=== PATIENT | male | born 1990 | race Caucasian/White ===

== ENCOUNTER 2022-07-03 20:58 | Emergency (ER) | payer OTHER, MEDICAID, SELFPAY ==
[2022-07-03 20:59] VITALS: BP 140/81; PULSE 82; RESP 16; TEMP 36.2; BMI 24.4
--- NOTE | 2022-07-03 23:04 | ED.VIS.LOWEX ---
HPI History of Present Illness HPI Narrative: Left knee laceration versus chainsaw 5 and half hours ago Chief Complaint: Laceration Informant: patient and spouse/S.O. Occured/Mechanism Mechanism/Context: Yes injury Onset/Context/Timing Onset: Today and Hours Context: Sudden Onset Timing: Continuous Quality of Pain: Sharp and Stabbing Current Severity: Mild Maximum Severity: Mild Associated Symptoms Associated Symptoms: Negative for Parasthesia, Weakness or Loss of Funtion Narrative Narrative: 33-year-old male past medical history of depression. Was using a chainsaw today and lacerated his left knee by accident. This occurred around 5:30 pm. He received a tetanus update about 2 to 3 months ago. Denies any other complaints. He has been able to ambulate on that leg. Tetanus Immunization: <5 years Prior similar symptoms: No Recent Illness/Hospitalization: No PFSH PFSH Allergy/AdvReac Type Severity Reaction Status Date / Time No Known Allergies Allergy Verified 07/03/22 23:18 Surgical History History of orthopedic surgery History of placement of ear tubes Social History Smoking Status: Current every day smoker tobacco type: cigarettes ROS ROS ED ROS Narrative Denies any recent Review of Systems ROS Unobtainable: Denies due to encephalopathy Constitutional Constitutional ED: Denies chills or fever(s) Eyes Eyes: Denies blurry vision ENT ENT ED: Denies ear pain Cardiovascular Cardiovascular: Denies chest pain Respiratory/Chest Respiratory/Chest: Denies cough Gastrointestinal Gastrointestinal: Denies abdominal pain Genitourinary Genitourinary ED: Denies dysuria Musculoskeletal Musculoskeletal: Denies arthralgias Integumentary Denies abscess Neurologic Neurologic: Denies headache(s) Psychiatric Psychiatric: Denies anxiety Endocrine Endocrinology: Denies polydipsia Hematologic/Lymphatic Hematologic/Lymphatic: Denies easy bleeding Allergic/Immunologic Allergic/Immunologic ED: Denies mouth swelling or tongue swelling EXAM Physical Exam Narrative Exam Narrative: -year-old male no acute distress vital signs stable afebrile. HEENT, neck exam normal. Lungs clear equal symmetrical. Heart regular rhythm rate about 80 no murmur. Chest were nontender. Abdomen soft nontender. Moving all 4 extremities. Left knee has 2 lacerations over the patella involving skin and subcu tissue. He is able to lift his leg prove his extensor mechanism is intact. He is able to flex the left leg. There is no gross bony deformity. No effusion. He has normal dorsi plantar flexion of the left foot and normal sensation. The lacerations to the knee will need to be repaired. Const Vital Signs: 07/03/22 20:59 07/03/22 20:59 Temperature 97.1 F L Temperature Source Temporal Pulse Rate 82 82 Respiratory Rate 16 16 Blood Pressure 140/81 H 140/81 H Blood Pressure Mean 100 100 Positive well nourished and well developed; Negative for obese, cachectic, contractures or unkempt General Appearance ED: well developed and NAD; Negative for unkempt, cachectic or contractures Nutritional Appearance: Negative for cachectic or obese HEENT Reports moist mucous membranes normocephalic and atraumatic; Negative for trauma or tenderness Eyes PERRL General Eye ED: Negative for other Neck full ROM and supple Thyroid: Negative for tender or other Lymph Lymphatic: Negative for other Chest Wall inspection of chest normal and palpation of chest normal Chest: Negative for other Resp normal respiratory effort, no retractions and clear to auscultation bilaterally Effort and Inspection: Negative for pain with movement Auscultation: Negative for rales, rhonchi, wheezes or diminished lung sounds Cardio regular rate, regular rhythm, S1 normal heart sound, S2 normal heart sound and no murmurs Rate: Negative for bradycardia Rhythm: Negative for abnormal rhythm Bruits: Negative for other GI non-tender, non-distended and no masses Inspection: Negative for abdominal distention Auscultation: normoactive bowel sounds Palpation: soft; Negative for tender Back/Spine no CVA tenderness General Back: Negative for CVA tenderness or swelling Cervical Spine: Negative for cervical spine tenderness Thoracic Spine / Upper Back: Negative for thoracic spinal tenderness Lumbar Spine / Lower Back: Negative for lumbar spinal tenderness Extremity full ROM; Negative for normal to inspection Extremity Narrative: 2 parallel lacerations left knee above the patella involving the skin and subcu tissue. Flexion-extension intact. Distally left foot is neurovascular intact with normal dorsi and plantar flexion. General Extremety ED: Negative for weight-bearing difficulty General Extremity: Negative for weight-bearing difficulty Neuro oriented x3, CN's II-XII intact bilaterally, moves all extremities and no sensory deficits noted Sensorium / Orientation: alert, oriented to person, oriented to place and oriented to time; Negative for orientation impaired, confused, lethargic or stuporous Motor Exam: strength 5/5 throughout Psych mental status grossly normal Appearance: Negative for unkempt Speech: No other Mood & Affect: Negative for anxious Skin No no wounds Lesions: no lesions Rashes: no rashes Trauma: laceration; Negative for abrasion MDM MDM MDM Narrative Medical decision making narrative: 32-year-old male with left knee lacerations secondary to a chainsaw. Will need to be repaired. Tetanus was updated 2 to 3 months ago. Let will be applied to the wound. Local anesthetized with lidocaine. Washed with Shur-Clens. Washed with saline and irrigated. Explored and closed using 4-0 Ethilon. Procedures Lacerations Left knee laceration repair:: Length: 3.54 in Depth: Sub Q Shape: Linear Prep: Sterile Conditions and Shure-Clens Laceration repair: Irrigated, Lidocaine, Local, Skin sutures and Wound explored Number of Sutures/Doni: 9 Suture Information: Ethilon, Simple and 4-0 Comment: Left knee laceration. There is 2 parallel lacerations with about half a centimeter skin between them. Local anesthetized with let and lidocaine subcu. Cleaned with Shur-Clens. Washed and irrigated with saline. Explored. Involve the skin and subcu tissue. No involvement of patella or the joint. Closed using 9 simple interrupted 4-0 Ethilon sutures. Proper hemostasis wound closure is obtained. Patient was instructed on wound care. Suture removal and to return if any signs of infection. Discharge Plan Triage Chief Complaint: Laceration ED Provider: Ran Dumont Dx/Rx/DC Orders Clinical Impression: Knee laceration Instructions: ED Laceration Extremity Primary Care Provider: Tl Villatoro Referrals: Dionisio Dougherty MD [Non-Staff] - 10-14 Days suture removal Activity Restrictions/Additional Instructions: Keep the area clean and dry. You may shower but then carefully dry it off thoroughly when you are done. Do not soak this in tub or any dirty water. Clean daily with soap and water peroxide and water. Apply antibiotic ointment daily. Ice and elevate to decrease pain and swelling. Motrin for pain and swelling and Tylenol for pain. Stitches out in no less than 10 days and if possible 14 days. Return if any signs of infection such as redness, large swelling, fever or streaks or pus. Disposition Disposition: Home, Self Care
[2022-07-03] MEDS: Lidocaine/Epi/Tetracaine 50 ML 1 APPLIC TOPICAL (23:20)
[2022-07-03] MEDS: Lidocaine 1% (20 ml mdv) 20 ML Vial INFILT (23:20)
[2022-07-04 00:46] VITALS: BP 122/70; PULSE 86; RESP 15; O2SAT 98
== END 2022-07-04 00:49 | disposition home or self-care (01) ==
PROVIDERS: Emergency Provider Emergency Medicine; PCP Internal Medicine; Visit Provider Emergency Medicine
DX: S81.012A Laceration without foreign body, left knee, initial encounter (principal); F17.210 Nicotine dependence, cigarettes, uncomplicated; W29.3XXA Contact with powered garden and outdoor hand tools and machinery, initial encounter
CPT/HCPCS: 12004; 99283